=== PATIENT | male | born 1970 | race Hispanic/Latino ===

== ENCOUNTER 2022-01-05 19:24 | Emergency (ER) | payer SELFPAY ==
[~2022-01-05 19:24] MED LIST: MIDAZOLAM HCL 2 MG/2 ML INJ ONE
[2022-01-05] MEDS ORDERED: NA CHLORIDE 0.9% 2,000 ML ONE (19:42)
[2022-01-05] MEDS ORDERED: ACETAMINOPHEN 325 MG/SUPP PR ONE (19:42)
[2022-01-05 19:43] LABS: Urine Blood Negative (Negative); Urine Glucose Negative (Negative); Urine Protein Negative (Negative); Urine Specific Gravity 1.015 (1.005-1.030); Urine pH 6.5 (5.0-7.0)
[2022-01-05] MEDS ORDERED: ACETAMINOPHEN 120 MG/SUPP PR ONE (19:56)
[2022-01-05 19:59] LABS: Absolute Lymphocytes (CBC) 2.3 K/uL (0.7-4.9); Hematocrit 49.5 % (39.6-49.0); Lymphocytes % 16.6 % (15.3-44.8); MCV 94.5 fL (80-100); RBC Red Blood Cell Count 5.24 M/uL (4.33-5.43)
[2022-01-05 20:07] LABS: Barbiturates NEGATIVE (NEGATIVE); Benzodiazepines NEGATIVE (NEGATIVE); Cocaine POSITIVE (NEGATIVE); METHAMPHETAM NEGATIVE (NEGATIVE); Methadone NEGATIVE (NEGATIVE); Opiates NEGATIVE (NEGATIVE); Phencyclidine NEGATIVE (NEGATIVE); THC Cannibis NEGATIVE (NEGATIVE)
[2022-01-05 20:11] LABS: Protime INR 0.99
[2022-01-05] MEDS ORDERED: MIDAZOLAM HCL 2 MG/2 ML INJ ONE (20:25)
[2022-01-05 20:36] LABS: ALT/SGPT 65 U/L (12-78); AST/SGOT 71 U/L (15-37); Albumin 5.1 g/dL (3.4-5.0); Alkaline Phosphatase 100 U/L (45-117); BUN Blood Urea Nitrogen 16 mg/dL (7-18); Bicarbonate 17 mmol/L (21-32); Bilirubin Direct 0.2 mg/dL (0-0.2); Glomerular Filtration Rate 39 ml/min (=/>90); Glucose Level 131 mg/dL (74-106); Potassium 3.7 mmol/L (3.5-5.1); Protein, Total 9.7 g/dL (6.4-8.2); Sodium Level 139 mmol/L (136-145)
--- NOTE | 2022-01-05 23:04 | ER ---
Nurse's Notes [facility] Name: Israel Reyes Age: 51 yrs Sex: Male : 1970 Arrival Date: 01/05/2022 Time: 19:25 Bed 4 Private MD: Diagnosis: Restlessness and agitation;Cocaine use, unspecified with cocaine-induced mood disorder Presentation: 01/05 19:28 Chief complaint: EMS states: called out to AMS. pt was running in the street yelling at as6 people. upon arrival to ER pt is restless, spitting at ER staff, speech is rambling, pt is in handcuffs, [place] [employer] at bedside. Coronavirus screen: At this time, the client does not indicate any symptoms associated with coronavirus-19. Ebola Screen: No symptoms or risks identified at this time. Onset of symptoms is unknown. 19:28 Method Of Arrival: EMS: [facility] as6 19:28 Acuity: VIDAL 2 as6 19:32 Chief complaint:. as6 22:05 Initial Sepsis Screen: Does the patient meet any 2 criteria? No. Patient's initial as6 sepsis screen is negative. Does the patient have a suspected source of infection? No. Patient's initial sepsis screen is negative. Risk Assessment: Do you want to hurt yourself or someone else? Unable to obtain. Triage Assessment: 19:35 General: Appears unkempt, Behavior is agitated, anxious. as6 Historical: - Allergies: 19:37 PENICILLINS; as6 - Home Meds: 19:37 Unable to obtain [Active]; as6 - PSHx: 19:37 Unable to Obtain; as6 - Immunization history:: Adult Immunizations unknown. - Social history:: Smoking status: unknown. - Unable to obtain history due to: patient being uncooperative. Screenin:37 Abuse screen: Denies threats or abuse. unable to obtian. Nutritional screening: No as6 deficits noted. Tuberculosis screening: No symptoms or risk factors identified. Fall Risk Mental Status- Overestimates/Forgets Limitations (15 pts.). Assessment: 19:33 General:. General: Appears unkempt, Behavior is agitated, anxious, Patient thrashing as6 around in the bed. Spitting at staff. Screaming " NO NO NO NO" Police at the bedside. Patient currently in handcuffs. EMS remaining at the bedside to help stabilize patient.. Pain: Unable to use pain scale. Patient is disoriented. Neuro: Level of Consciousness is confused. Cardiovascular:. Respiratory: Airway is patent Trachea midline Respiratory effort is. Derm: Skin is diaphoretic. 20:12 General: "Do you see that demon over there?" pt attempting to remove Tylenol supp.. as6 21:30 General: pt more calm and corporative at this time, PO fluids provided. as6 22:04 General: pt calm and corporative, ambulated to bathroom independently . as6 22:12 Reassessment: Patient states feeling better. Patient states symptoms have improved. tw5 General: Behavior is calm, cooperative, Patient provided water and states" I am feeling a little better, I just wanting some water and I want to call my family." Patient handed his phone. Vital Signs: 19:35 BP 148 / 111; Pulse 157; Resp 22; Temp 103.2; Pulse Ox 97% on R/A; Weight 80.74 kg; as6 Height 5 ft. 6 in. (167.64 cm); 20:11 Pulse 185; Resp 28; Pulse Ox 99% on R/A; as6 21:30 BP 104 / 47; Pulse 134; Resp 18; Pulse Ox 99% on R/A; as6 22:04 BP 159 / 85; Pulse 115; Resp 18 S; Temp 99.1(O); Pulse Ox 95% on R/A; as6 22:06 BP 139 / 85; as6 22:12 BP 139 / 95; Pulse 108; Resp 18; Pulse Ox 95% on R/A; tw5 23:01 BP 109 / 75; Pulse 94; Resp 18 S; Pulse Ox 97% on R/A; as6 19:35 Body Mass Index 28.73 (80.74 kg, 167.64 cm) as6 ED Course: 19:25 Patient arrived in ED. rn 19:25 Franky Dumont MD is Attending Physician. rn 19:28 Jozef Jones RN is Primary Nurse. as6 19:30 Triage completed. as6 19:33 Urine collected: straight cath specimen. as6 19:35 Urine collected:. Straight cath inserted, using sterile technique, 16 Fr. Specimen bb obtained. 19:37 Patient has correct armband on for positive identification. Placed in gown. Bed in low as6 position. Side rails up X2. Security at bedside. Client placed on continuous cardiac and pulse oximetry monitoring. NIBP monitoring applied. Door closed. Noise minimized. Moved to private room. Verbal reassurance given. 19:48 Inserted saline lock: 20 gauge in right forearm, using aseptic technique. Blood as6 collected. 19:50 Acetaminophen Sent. as6 19:50 Basic Metabolic Panel Sent. as6 19:50 CBC with Diff Sent. as6 19:50 ETOH Level Sent. as6 19:50 Hepatic Function Sent. as6 19:50 PT-INR Sent. as6 19:50 Ptt, Activated Sent. as6 19:50 Salicylate Sent. as6 19:50 Urine Drug Screen Sent. as6 19:50 CK Sent. as6 22:05 Arm band placed on. as6 23:18 No provider procedures requiring assistance completed. IV discontinued, intact, tw5 bleeding controlled, No redness/swelling at site. Pressure dressing applied. 23:47 Primary Nurse role handed off by Jozef Jones, FRANDY bb Administered Medications: 19:32 Drug: Versed (midazolam) 5 mg Route: IM; Site: left gluteus; as6 23:02 Follow up: Response: No adverse reaction as6 19:49 Drug: NS 0.9% 1000 ml Route: IV; Rate: 1000 ml; Site: right forearm; as6 23:01 Follow up: Response: No adverse reaction; IV Status: Completed infusion; IV Intake: as6 1000ml 19:49 Drug: NS 0.9% 1000 ml Route: IV; Rate: 1000 ml; Site: right forearm; as6 23:02 Follow up: Response: No adverse reaction; IV Status: Completed infusion; IV Intake: as6 1000ml 20:00 Drug: Tylenol Suppository 650 mg Route: HI; as6 23:02 Follow up: Response: No adverse reaction as6 20:25 Not Given (Other Intervention Used): Midazolam 3 mg IVP once as6 20:29 Drug: Midazolam 2 mg Route: IVP; Site: right forearm; as6 23:02 Follow up: Response: No adverse reaction as6 Medication: 19:37 VIS not applicable for this client. as6 Intake: 23:01 IV: 1000ml; Total: 1000ml. as6 23:02 IV: 1000ml; Total: 2000ml. as6 Outcome: 23:04 Discharge ordered by . rn 23:18 Discharged to home ambulatory, with family. tw5 23:18 Condition: improved 23:18 Discharge instructions given to patient, Instructed on discharge instructions, follow up and referral plans. subastance abuse. Patient provided with resources. 23:19 Patient left the ED. tw 23:48 Patient left the ED. bb Signatures: Minerva Bonilla RN RN bb Franky Dumont MD MD rn Wood, Tiffany tw5 Jozef Jones RN RN as6
--- NOTE | 2022-01-05 23:05 | EDPHYS ---
Physician Documentation [facility] Name: Israel Reyes Age: 51 yrs Sex: Male : 1970 Arrival Date: 01/05/2022 Time: 19:25 Bed 4 Private MD: ED Physician Franky Dumont HPI: 01/05 20:06 This 51 yrs old Male presents to ER via EMS with complaints of AMS, drug rn ingestion. 20:06 The patient presents with agitation, confusion. Onset: The symptoms/episode rn began/occurred at an unknown time. Possible causes: drug use. Associated signs and symptoms: Pertinent positives: agitation, combativeness, confusion. Current symptoms: In the emergency department the patient's symptoms are unchanged from the initial presentation. It is unknown whether or not the patient has had similar symptoms in the past. It is unknown whether or not the patient has recently seen a physician. Brought in by police for AMS, agitation, combativeness, told police or EMS that smoked "something", later reported using "crack" or "rock". EMS unable to obtain vitals. . Historical: - Allergies: 19:37 PENICILLINS; as6 - Home Meds: 19:37 Unable to obtain [Active]; as6 - PSHx: 19:37 Unable to Obtain; as6 - Immunization history:: Adult Immunizations unknown. - Social history:: Smoking status: unknown. - Unable to obtain history due to: patient being uncooperative. ROS: 20:06 Unable to obtain ROS due to altered mental status, patient being uncooperative. rn Exam: 20:06 Constitutional: Awake, alert, agitated and spitting on staff, restrained by police rn Head/Face: Normocephalic, atraumatic. Eyes: Periorbital areas with no swelling, redness, or edema. ENT: dry MM Cardiovascular: Tachycardic, regular Respiratory: No increased work of breathing, no retractions or nasal flaring. Abdomen/GI: Soft, non-tender Skin: Diaphoretic MS/ Extremity: Pulses equal, no cyanosis. Neurovascular intact. Full, normal range of motion. Equal circumference. Neuro: Awake and alert, GCS 15, moves all 4 ext 21:02 ECG was reviewed by the Attending Physician. rn Vital Signs: 19:35 BP 148 / 111; Pulse 157; Resp 22; Temp 103.2; Pulse Ox 97% on R/A; Weight 80.74 kg; as6 Height 5 ft. 6 in. (167.64 cm); 20:11 Pulse 185; Resp 28; Pulse Ox 99% on R/A; as6 21:30 BP 104 / 47; Pulse 134; Resp 18; Pulse Ox 99% on R/A; as6 22:04 BP 159 / 85; Pulse 115; Resp 18 S; Temp 99.1(O); Pulse Ox 95% on R/A; as6 22:06 BP 139 / 85; as6 22:12 BP 139 / 95; Pulse 108; Resp 18; Pulse Ox 95% on R/A; tw5 23:01 BP 109 / 75; Pulse 94; Resp 18 S; Pulse Ox 97% on R/A; as6 19:35 Body Mass Index 28.73 (80.74 kg, 167.64 cm) as6 MDM: 19:26 Patient medically screened. rn 23:02 Differential Diagnosis: electrolyte abnormality, alcohol intoxication, overdose, volume rn depletion. Data reviewed: vital signs, nurses notes, lab test result(s), EKG, and as a result, I will discharge patient. Counseling: I had a detailed discussion with the patient and/or guardian regarding: the historical points, exam findings, and any diagnostic results supporting the discharge/admit diagnosis, lab results, the need for outpatient follow up, to return to the emergency department if symptoms worsen or persist or if there are any questions or concerns that arise at home. Response to treatment: the patient's symptoms have markedly improved after treatment, the patient's condition has returned to base line, the patient is now symptom free. ED course: Pt markedly improved, no longer agitated, ambulatory around ER and to bathroom. Improving vitals. Cocaine +, normal CK, no chest pain. + mild renal insufficiency, no history in our system and patient not aware of in past, patient insists on going home, does not want to be observed any further, called for a ride from family, and notified me to discharge him.. 01/05 19: Order name: Acetaminophen; Complete Time: 20:49 rn 01/05 19: Order name: Basic Metabolic Panel; Complete Time: 20:49 rn 01/05 19: Order name: CBC with Diff; Complete Time: 20:49 rn 10/17 19:26 Order name: ETOH Level; Complete Time: 20:49 rn 01/05 19:26 Order name: Hepatic Function; Complete Time: 20:49 rn 01/05 19:26 Order name: PT-INR; Complete Time: 20:49 rn 01/05 19:26 Order name: Ptt, Activated; Complete Time: 20:49 rn 01/05 19:26 Order name: Salicylate; Complete Time: 20:49 rn 01/05 19:26 Order name: Urine Drug Screen; Complete Time: 20:49 rn 01/05 19:37 Order name: CK; Complete Time: 20:49 rn 01/05 19:43 Order name: Urine Dipstick-Ancillary; Complete Time: 20:49 EDMS 01/05 19:26 Order name: EKG; Complete Time: 19:27 rn 01/05 19:26 Order name: EKG - Nurse/Tech; Complete Time: 20:11 rn 01/05 19:26 Order name: IV Saline Lock; Complete Time: 19:48 rn 01/05 19:26 Order name: Labs collected and sent; Complete Time: 19:50 rn 01/05 19:26 Order name: Urine Dipstick-Ancillary (obtain specimen); Complete Time: 19:41 rn 01/05 19:26 Order name: Cardiac monitoring; Complete Time: 20:11 rn 01/05 19:26 Order name: O2 Sat Monitoring; Complete Time: 19:41 rn EC:02 Rate is 156 beats/min. Rhythm is regular. QRS [place] is Normal. TN interval is normal. rn QRS interval is normal. QT interval is normal. No Q waves. T waves are Normal. No ST changes noted. Clinical impression: Sinus tachycardia. Interpreted by me. Reviewed by me. Administered Medications: 19:32 Drug: Versed (midazolam) 5 mg Route: IM; Site: left gluteus; as6 23:02 Follow up: Response: No adverse reaction as6 19:49 Drug: NS 0.9% 1000 ml Route: IV; Rate: 1000 ml; Site: right forearm; as6 23:01 Follow up: Response: No adverse reaction; IV Status: Completed infusion; IV Intake: as6 1000ml 19:49 Drug: NS 0.9% 1000 ml Route: IV; Rate: 1000 ml; Site: right forearm; as6 23:02 Follow up: Response: No adverse reaction; IV Status: Completed infusion; IV Intake: as6 1000ml 20:00 Drug: Tylenol Suppository 650 mg Route: TN; as6 23:02 Follow up: Response: No adverse reaction as6 20:25 Not Given (Other Intervention Used): Midazolam 3 mg IVP once as6 20:29 Drug: Midazolam 2 mg Route: IVP; Site: right forearm; as6 23:02 Follow up: Response: No adverse reaction as6 Disposition Summary: 01/05/22 23:04 Discharge Ordered Location: Home rn Problem: new rn Symptoms: have improved rn Condition: Stable rn Diagnosis - Restlessness and agitation rn - Cocaine use, unspecified with cocaine-induced mood disorder rn Followup: rn - With: Private Physician - When: As needed - Reason: Recheck today's complaints, Re-evaluation by your physician Discharge Instructions: - Discharge Summary Sheet rn - Cocaine Use Disorder rn Forms: - Medication Reconciliation Form rn - Thank You Letter rn - Antibiotic product management internship - Work release form bb - Prescription Opioid Use rn Signatures: Dispatcher [employer] Franky Maldonado MD MD rn Slawson, Ashby, RN RN as6
[2022-01-05 23:45] VITALS: TEMP 99.1
[2022-01-05 23:49] VITALS: BP 109/75; O2SAT 97
--- NOTE | 2022-01-06 14:02 | EKG ---
Test Date: 2022-01-05 Test Time: 20:13:04 Emulsion Operator: MEASUREMENT RESULTS: Intervals: Rate: 156 AL: 126 QRSD: 76 QT: 322 QTc: 518 [place]: P: 84 AL: 126 QRS: 80 T: 64 INTERPRETIVE STATEMENTS: Sinus tachycardia Nonspecific ST abnormality Abnormal ECG No previous ECG available for comparison Electronically Signed On 01-06-22 14:00:59 CDT by Adilson Rodney
== END 2022-01-05 23:48 | disposition home or self-care (01) ==
LOC: ER 19:24
DX: R45.1 Restlessness and agitation (principal); F14.94 Cocaine use, unspecified with cocaine-induced mood disorder; Z88.0 Allergy status to penicillin
CPT/HCPCS: 36415; 51702; 80048; 80076; 80307; 80320; 80329; 81003; 82550; 85025; 85610; 85730; 93005; 96361; 96372; 96374; 99284; J2250; J7030

== ENCOUNTER 2022-08-23 03:55 | Emergency (ER) | payer OTHER, SELFPAY ==
--- NOTE | 2022-08-23 05:31 | EDPHYS ---
Physician Documentation [facility] Name: Israel Reyes Age: 51 yrs Sex: Male : 1970 Arrival Date: 08/23/2022 Time: 03:55 Bed 8 Private MD: ED Physician Florentino Cheung HPI: 08/24 04:37 This 51 yrs old Male presents to ER via Ambulatory with complaints of Arm kdr Injury, Back Pain, Thumb Injury. 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 Patient has an abrasion which is healing on the left elbow and some swelling to the lateral aspect of the right elbow. Patient also complains of chronic low back pain. Patient is nontoxic-appearing and not requiring emergent intervention in the ED. Initially the injury was thought to be a high-pressure injury however the mechanism of injury was the contusion or striking of the pressure wand on his right elbow. Onset: The symptoms/episode began/occurred suddenly, 2 day(s) ago. Severity of symptoms: At their worst the symptoms were mild in the emergency department the symptoms are unchanged. The patient has not experienced similar symptoms in the past. The patient has not recently seen a physician. Historical: - Allergies: 08/23 04:13 PENICILLINS; kd3 04:13 Aspirin; kd3 - Immunization history:: Adult Immunizations up to date. - Social history:: Smoking status: Patient reports the use of cigarette tobacco products, smokes one pack cigarettes per day. ROS: 08/24 04:37 Constitutional: Negative for fever, chills, and weight loss, Eyes: Negative for injury, kdr pain, redness, and discharge, ENT: Negative for injury, pain, and discharge, Neck: Negative for injury, pain, and swelling, Cardiovascular: Negative for chest pain, palpitations, and edema, Respiratory: Negative for shortness of breath, cough, wheezing, and pleuritic chest pain, : Negative for injury, bleeding, discharge, and swelling, MS/Extremity: Negative for injury and deformity, Neuro: Negative for headache, weakness, numbness, tingling, and seizure activity. Psych: Negative for depression, anxiety, suicide ideation, homicidal ideation, and hallucinations, Allergy/Immunology: Negative for hives, rash, and allergies, Endocrine: Negative for neck swelling, polydipsia, polyuria, polyphagia, and marked weight changes, Hematologic/Lymphatic: Negative for swollen nodes, abnormal bleeding, and unusual bruising. Abdomen/GI: Negative for abdominal pain, nausea, vomiting, diarrhea, and constipation. Abdomen/GI: Positive for Back: Positive for pain with movement, of the lumbar area. MS/extremity: Positive for injury or acute deformity, pain, tenderness, of the right elbow. Skin: Positive for abrasion(s). Exam: 04:37 Constitutional: This is a well developed, well nourished patient who is awake, alert, kdr and in no acute distress. Head/Face: Normocephalic, atraumatic. Eyes: Pupils equal round and reactive to light, extra-ocular motions intact. Lids and lashes normal. Conjunctiva and sclera are non-icteric and not injected. Cornea within normal limits. Periorbital areas with no swelling, redness, or edema. Neck: Trachea midline, no thyromegaly or masses palpated, and no cervical lymphadenopathy. Supple, full range of motion without nuchal rigidity, or vertebral point tenderness. No Meningismus. Chest/axilla: Normal chest wall appearance and motion. Nontender with no deformity. No lesions are appreciated. Cardiovascular: Regular rate and rhythm with a normal S1 and S2. No gallops, murmurs, or rubs. Normal PMI, no JVD. No pulse deficits. Respiratory: Lungs have equal breath sounds bilaterally, clear to auscultation and percussion. No rales, rhonchi or wheezes noted. No increased work of breathing, no retractions or nasal flaring. Abdomen/GI: Soft, non-tender, with normal bowel sounds. No distension or tympany. No guarding or rebound. No evidence of tenderness throughout. Back: No spinal tenderness. No costovertebral tenderness. Full range of motion. MS/ Extremity: Pulses equal, no cyanosis. Neurovascular intact. Full, normal range of motion. Neuro: Awake and alert, GCS 15, oriented to person, place, time, and situation. Cranial nerves II-XII grossly intact. Motor strength 5/5 in all extremities. Sensory grossly intact. Cerebellar exam normal. Normal gait. Psych: Awake, alert, with orientation to person, place and time. Behavior, mood, and affect are within normal limits. 04:37 Musculoskeletal/extremity: Contusion to right lateral condyle of the right elbow. 04:37 Skin: injury, abrasion(s), small abrasion noted, of the left elbow. Vital Signs: 08/23 04:10 Weight 67.13 kg; Height 5 ft. 5 in. ; kd3 04:17 Temp 98.2; kd3 04:31 BP 136 / 83; Pulse 55; Resp 16; Pulse Ox 100% ; kd3 05:26 BP 110 / 65; Pulse 53; Resp 16; Pulse Ox 98% ; vc1 04:10 Body Mass Index 24.63 (67.13 kg, 165.1 cm) kd3 MDM: 05:29 Patient medically screened. kdr 08/24 04:37 Data reviewed: vital signs, nurses notes, radiologic studies. kdr 08/23 04:22 Order name: Elbow Right 3 View XRAY kdr 08/23 04:22 Order name: Hand Left 3 View XRAY kdr 08/23 05:33 Order name: Pipo Wrap: Right elbow; Complete Time: 05:40 kdr Administered Medications: No medications were administered Disposition Summary: 08/23/22 05:29 Discharge Ordered Location: Home kdr Problem: new kdr Symptoms: have improved kdr Condition: Stable kdr Diagnosis - Contusion of right elbow kdr - Pain in right elbow kdr - Left thumb pain at DIP on the volar surface kdr Followup: kdr - With: Private Physician - When: 2 - 3 days - Reason: If symptoms return, Further diagnostic work-up, Recheck today's complaints, Continuance of care, Re-evaluation by your physician Discharge Instructions: - Discharge Summary Sheet kdr - Joint Pain kdr - Musculoskeletal Pain kdr - Heat Therapy, [id number] kdr Forms: - Medication Reconciliation Form kdr - Thank You Letter kdr - Work release form vc1 Prescriptions: - Tylenol 325 mg Oral Tablet - take 2 tablets by ORAL route every 6 hours as needed; 16 tablet; Refills: 0, kdr Product Selection Permitted Signatures: Dispatcher [employer] EDFlorentino Arnold MD MD kdr Sarah Hatfield RN RN kd3
--- NOTE | 2022-08-23 05:31 | ER ---
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 This happened a couple of days ago but i am still feeling the pain in my right arm, shoulder and back. I think my thumb on my left hand was also hyper extended in the process. Coronavirus screen: Vaccine status: Patient reports being unvaccinated. Ebola Screen: No symptoms or risks identified at this time. Initial Sepsis Screen: Does the patient meet any 2 criteria? No. Patient's initial sepsis screen is negative. Does the patient have a suspected source of infection? No. Patient's initial sepsis screen is negative. Risk Assessment: Do you want to hurt yourself or someone else? Patient reports no desire to harm self or others. Onset of symptoms was August 23, 2022. 04:10 Method Of Arrival: Ambulatory kd3 04:10 Acuity: VIDAL 4 kd3 Triage Assessment: 04:13 General: Appears uncomfortable, Behavior is calm, cooperative. Pain: Complains of pain kd3 in back, dorsal aspect of distal phalanx of left thumb, dorsal aspect of proximal phalanx of left thumb, Left first web space and right arm. Musculoskeletal: Circulation, motion, and sensation intact. 05:52 Injury Description: contusion to right elbow. vc1 Historical: - Allergies: 04:13 PENICILLINS; kd3 04:13 Aspirin; kd3 - Immunization history:: Adult Immunizations up to date. - Social history:: Smoking status: Patient reports the use of cigarette tobacco products, smokes one pack cigarettes per day. Screenin:25 [facility] ED Fall Risk Assessment (Adult) History of falling in the last 3 months, vc1 including since admission No falls in past 3 months (0 pts) Confusion or Disorientation No (0 pts) Intoxicated or Sedated No (0 pts) Impaired Gait No (0 pts) Mobility Assist Device Used No (0 pt) Altered Elimination No (0 pt) Score/Fall Risk Level 0 - 2 = Low Risk Oriented to surroundings, Maintained a safe environment, Educated pt \T\ family on fall prevention, incl call for assistance when getting out of bed. Abuse screen: Denies threats or abuse. Nutritional screening: No deficits noted. Tuberculosis screening: No symptoms or risk factors identified. Assessment: 05:26 Reassessment: No changes from previously documented assessment. Patient and/or family vc1 updated on plan of care and expected duration. Pain level reassessed. Patient is alert, oriented x 3, equal unlabored respirations, skin warm/dry/pink. Vital Signs: 04:10 Weight 67.13 kg; Height 5 ft. 5 in. ; kd3 04:17 Temp 98.2; kd3 04:31 BP 136 / 83; Pulse 55; Resp 16; Pulse Ox 100% ; kd3 05:26 BP 110 / 65; Pulse 53; Resp 16; Pulse Ox 98% ; vc1 04:10 Body Mass Index 24.63 (67.13 kg, 165.1 cm) kd3 ED Course: 04:01 Patient arrived in ED. ja2 04:06 Florentino Cheung MD is Attending Physician. kdr 04:13 Triage completed. kd3 04:13 Arm band placed on right wrist. kd3 04:13 Patient has correct armband on for positive identification. Bed in low position. Pulse vc1 ox on. NIBP on. 04:50 Elbow Right 3 View XRAY In Process Unspecified. EDMS 04:50 Hand Left 3 View XRAY In Process Unspecified. EDMS 05:25 Eve Reddy, FRANDY is Primary Nurse. vc1 05:49 No provider procedures requiring assistance completed. Patient did not have IV access vc1 during this emergency room visit. Administered Medications: No medications were administered Medication: 05:26 VIS not applicable for this client. vc1 Outcome: 05:29 Discharge ordered by . kdr 05:51 Discharged to home ambulatory, with significant other. vc1 05:51 Condition: good 05:51 Discharge instructions given to patient, Instructed on discharge instructions, follow up and referral plans. medication usage, Demonstrated understanding of instructions, follow-up care, medications, Prescriptions given X 1, 2. 05:52 Patient left the ED. vc1 Signatures: Dispatcher [employer] EDMS Florentino Cheung MD MD kdr Alexander, Jessica ja2 Doucette, Kyli, RN RN kd3 Eve Reddy RN RN vc1
[2022-08-23 05:57] VITALS: TEMP 98.2
[2022-08-23 06:00] VITALS: BP 110/65; O2SAT 98
--- NOTE | 2022-08-24 14:34 | RAD REPORT ---
EXAM DESCRIPTION: RAD - Elbow Right 3 View - 08/23/2022 4:48 am CLINICAL HISTORY: Pain COMPARISON: None. TECHNIQUE: Right Elbow 3 Views FINDINGS: No fracture or dislocation. No significant sclerotic/lytic bone lesion. Joint spaces unremarkable. Soft tissues unremarkable. IMPRESSION: Normal right elbow Radiographs. Electronically signed by: Brett Chandler MD 08/23/2022 5:06 AM CDT Due to temporary technical issues with the PACS/Fluency reporting system, reports are being signed by the in house radiologist without review as a courtesy to ensure prompt reporting. The interpreting r adiologist is fully responsible for the content of the report.
--- NOTE | 2022-08-24 14:36 | RAD REPORT ---
EXAM DESCRIPTION: RAD - Hand Left 3 View - 08/23/2022 4:48 am CLINICAL HISTORY: The patient is 51 years old and is Male; PAIN [facility] MAIN TECHNIQUE: Frontal, lateral and oblique views of the left hand. COMPARISON: No relevant prior studies available. FINDINGS: BONES/JOINTS: Unremarkable. No acute fracture. No dislocation. SOFT TISSUES: Unremarkable. No radiopaque foreign body. TUBES, LINES AND DEVICES: Tip of the left first digit is obscured secondary to presumed oxygen julieta tor. IMPRESSION: No acute findings in the left hand. Electronically signed by: Hector Oconnor MD 08/23/2022 5:07 AM CDT Due to temporary technical issues with the PACS/Fluency reporting system, reports are being signed by the in house radiologist without review as a courtesy to ensure prompt reporting. The interpreting r adiologist is fully responsible for the content of the report.
== END 2022-08-23 05:52 | disposition home or self-care (01) ==
LOC: ER 03:55
DX: S50.01XA Contusion of right elbow, initial encounter (principal); M79.645 Pain in left finger(s); F17.210 Nicotine dependence, cigarettes, uncomplicated; Z88.0 Allergy status to penicillin; Z88.6 Allergy status to analgesic agent
CPT/HCPCS: 99283